=== PATIENT | female | born 1950 | race African-American/Black ===

== ENCOUNTER → 2017-04-25 | Outpatient (CLI) | payer MEDICARE, OTHER ==
[2014-08-04 16:30] VITALS: BP 185/110
--- NOTE | 2017-04-25 08:58 | RAD ---
DATE: 04/25/2017 EXAM: DIGITAL SCREEN BILAT W/CAD HISTORY: Routine screening COMPARISON: Previous study from 2016 and 2015 This study was interpreted with the benefit of Computerized Aided Detection (CAD). FINDINGS: Breast Density: SCATTERED The breast parenchyma shows scattered fibroglandular densities. Breast parenchyma level B. The skin and nipples are within normal limits. No suspicious calcifications, spiculated masses or areas of architectural distortion. IMPRESSION: No mammographic evidence of malignancy. Stable mammogram. BI-RADS CATEGORY: 2 BENIGN FINDING(S) RECOMMENDED FOLLOW-UP: 12M 12 MONTH FOLLOW-UP PQRS compliance statement: Patient information was entered into a reminder system with a target due date 04/25/2018 for the next mammogram. Mammography is a sensitive method for finding small breast cancers, but it does not detect them all and is not a substitute for careful clinical examination. A negative mammogram does not negate a clinically suspicious finding and should not result in delay in biopsying a clinically suspicious abnormality. "Our facility is accredited by the [employer] Mammography [employer]."
== END | disposition home or self-care (01) ==
LOC: MAMMO 08:15
PROVIDERS: ATTEND Family Medicine
DX: Z12.31 Encounter for screening mammogram for malignant neoplasm of breast (principal)
CPT/HCPCS: G0202; 77067

== ENCOUNTER → 2018-03-06 | Outpatient (CLI) | payer MEDICARE, OTHER ==
[2014-08-04 16:30] VITALS: BP 185/110
--- NOTE | 2018-03-07 08:22 | RAD ---
DATE: 03/06/2018 EXAM: MAMMO CHERYL SCREENING BILATERAL HISTORY: Routine screening COMPARISON: 04/25/2017 This study was interpreted with the benefit of Computerized Aided Detection (CAD). Breast Density: SCATTERED The breast parenchyma shows scattered fibroglandular densities. Breast parenchyma level B. FINDINGS: 2-D and 3-D tomosynthesis imaging was performed in CC and MLO projections. No new or enlarging breast densities are seen. Benign-appearing lymph nodes are present in the axillary regions. No suspicious microcalcifications are evident. IMPRESSION: Stable mammograms without evidence of malignancy. BI-RADS CATEGORY: 2 BENIGN FINDING(S) RECOMMENDED FOLLOW-UP: 12M 12 MONTH FOLLOW-UP PQRS compliance statement: Patient information was entered into a reminder system with a target due date for the next mammogram. Mammography is a sensitive method for finding small breast cancers, but it does not detect them all and is not a substitute for careful clinical examination. A negative mammogram does not negate a clinically suspicious finding and should not result in delay in biopsying a clinically suspicious abnormality. "Our facility is accredited by the [employer] Mammography [employer]."
== END | disposition home or self-care (01) ==
LOC: MAMMO 09:19
PROVIDERS: ATTEND Family Medicine
DX: Z12.31 Encounter for screening mammogram for malignant neoplasm of breast (principal)
CPT/HCPCS: 77063; 77067

== ENCOUNTER → 2018-11-25 | Outpatient (CLI) | payer MEDICARE, OTHER ==
[2014-08-04 16:30] VITALS: BP 185/110
--- NOTE | 2018-11-25 16:53 | RAD ---
DUPLEX SONOGRAPHY OF THE PERIPHERAL ARTERIAL SYSTEM OF BOTH LOWER EXTREMITIES Clinical indications: Claudication. Findings: Duplex sonography of the peripheral arterial system of both lower extremities including romeo scale and color flow and spectral waveform analysis was performed. Biphasic waveforms are seen. No occlusive disease is seen. No significant plaque formation or stenosis is identified. The measurements were performed using the NASCET criteria. Peak systolic flow velocities are as follows: Right leg: common femoral artery- 145 cm/sec, profunda femoral artery -85 cm/sec, proximal superficial femoral artery -136 cm/sec, mid superficial femoral artery -105 cm/sec, distal superficial femoral artery- 93 cm/sec, popliteal artery -70 cm/sec, posterior tibial artery- 72 cm/sec, peroneal artery- 82 cm/sec, anterior tibial artery- 48 cm/sec, dorsalis pedis artery -92 cm/sec. Left leg: common femoral artery- 153 cm/sec, profunda femoral artery -103 cm/sec, proximal superficial femoral artery- 141cm/sec, mid superficial femoral artery- 84 cm/sec, distal superficial femoral artery- 76 cm/sec, popliteal artery -75 cm/sec, posterior tibial artery- 90 cm/sec, peroneal artery -48 cm/sec, anterior tibial artery -59 cm/sec, dorsalis pedis artery- 75 cm/sec. IMPRESSION: No significant peripheral arterial vascular disease is seen by duplex sonographic evaluation. ANKLE BRACHIAL INDEX STUDY: Clinical indications: Same. Ankle/brachial indices were performed on both sides. Right side: Arm: The systolic blood pressure is 115 mmHg Ankle: The systolic blood pressure is 146 mmHg Therefore, the ankle brachial index on the right side is 1.2 using the higher left arm pressure. Left side: Arm: The systolic blood pressure is 121 mmHg Ankle: The systolic blood pressure is 144 mmHg Therefore, the ankle brachial index on the left side is 1.2. Impression: Normal bilateral ABUNDIO. Electronically signed by: Randal Mulligan MD (11/25/2018 4:50 PM) [place] [id number]
== END | disposition home or self-care (01) ==
LOC: US 15:31
PROVIDERS: ATTEND Family Medicine
DX: I73.9 Peripheral vascular disease, unspecified (principal)
CPT/HCPCS: 93922; 93925

== ENCOUNTER → 2019-03-09 | Outpatient (CLI) | payer MEDICARE, OTHER ==
[2014-08-04 16:30] VITALS: BP 185/110
--- NOTE | 2019-03-10 16:16 | RAD ---
DATE: 03/09/2019 EXAM: MAMMO CHERYL SCREENING BILATERAL HISTORY: Routine screening COMPARISON: 03/29/2017 and 03/06/2018 mammographic exams This study was interpreted with the benefit of Computerized Aided Detection (CAD). Breast Density: HETERO The breast parenchyma is heterogenously dense, which could reduce sensitivity of mammography. Breast parenchyma level C. FINDINGS: Left upper outer breast small focal asymmetry is present 3.5 cm from the nipple and is not seen on prior exams. No suspicious calcifications, masses, or distortion. IMPRESSION: New focal asymmetry involving the left upper-outer breast of indeterminate significance. BI-RADS CATEGORY: 0 INCOMPLETE: NEEDS ADDITIONAL IMAGING EVALUATION AND/OR PRIOR MAMMOGRAMS FOR COMPARISON. RECOMMENDED FOLLOW-UP: ADD ADDITIONAL IMAGING. Spot compression imaging of the anterior left upper-outer breast is recommended in the MLO and CC projections. Ultrasound may be needed. PQRS compliance statement: Patient information was entered into a reminder system with a target due date for the next mammogram. Mammography is a sensitive method for finding small breast cancers, but it does not detect them all and is not a substitute for careful clinical examination. A negative mammogram does not negate a clinically suspicious finding and should not result in delay in biopsying a clinically suspicious abnormality. "Our facility is accredited by the [employer] Mammography Program."
== END | disposition home or self-care (01) ==
LOC: MAMMO 10:23
PROVIDERS: ATTEND Family Medicine
DX: Z12.31 Encounter for screening mammogram for malignant neoplasm of breast (principal); N64.89 Other specified disorders of breast
CPT/HCPCS: 77063; 77067

== ENCOUNTER → 2019-03-17 | Outpatient (CLI) | payer MEDICARE, OTHER ==
[2014-08-04 16:30] VITALS: BP 185/110
--- NOTE | 2019-03-17 18:34 | RAD ---
DATE: 03/17/2019 EXAM: DIGITAL DIAGNOSTIC LT HISTORY: Abnormal mammogram COMPARISON: 03/06/2018 and 03/09/2019 screen mammographic exams This study was interpreted with the benefit of Computerized Aided Detection (CAD). Breast Density: SCATTERED The breast parenchyma shows scattered fibroglandular densities. Breast parenchyma level B. FINDINGS: Upon spot compression imaging of the outer left CC projection and the left upper breast in the MLO projection, there is no persistent suspicious asymmetry or mass. IMPRESSION: Stable BI-RADS CATEGORY: 1 NEGATIVE RECOMMENDED FOLLOW-UP: 12M 12 MONTH FOLLOW-UP PQRS compliance statement: Patient information was entered into a reminder system with a target due date for the next mammogram. Mammography is a sensitive method for finding small breast cancers, but it does not detect them all and is not a substitute for careful clinical examination. A negative mammogram does not negate a clinically suspicious finding and should not result in delay in biopsying a clinically suspicious abnormality. "Our facility is accredited by the [employer] Mammography Program."
== END | disposition home or self-care (01) ==
LOC: MAMMO 12:57
PROVIDERS: ATTEND Family Medicine
DX: R92.8 Other abnormal and inconclusive findings on diagnostic imaging of breast (principal)
CPT/HCPCS: 77065

== ENCOUNTER 2019-11-01 08:13 | Emergency (ER) | payer MEDICARE, OTHER ==
[~2019-11-01] VITALS: Ht 160 cm; Wt 84.0 kg
--- NOTE | 2019-11-01 08:39 | PHYS DOC ---
Past Medical History Past Medical History: GERD, Hypertension Past Surgical History: Appendectomy, Cholecystectomy, Hysterectomy, Other Additional Past Surgical Histo: UMBILICAL HERNIA REPAIR Smoking Status: Never Smoker Alcohol Use: None Drug Use: None General Adult EDM: Chief Complaint: ABDOMINAL PAIN HPI: HPI: Patient is a 69 year old female who presented to ER today for evaluation of mid abdominal pain started last night. Patient could not sleep last night due to pain, patient says she never experienced this type pain in the past, patient denies any nausea vomiting. Patient has multiple abdominal operations in the past include hysterectomy, cholecystectomy and appendectomy. Patient has chronic low back pain. Patient said it is not her back problem. Patient denies any fever. Patient denies chest pain, no trouble breathing. Patient denies any bowel or bladder incontinence. Review of Systems: Review of Systems: Constitutional: Denies fever or chills. [] Eyes: Denies change in visual acuity. [] HENT: Denies nasal congestion or sore throat. [] Respiratory: Denies cough or shortness of breath. [] Cardiovascular: Denies chest pain or edema. [] GI: Positive for abdominal pain, denies nausea, vomiting, bloody stools or diarrhea. [] : Denies dysuria. [] Musculoskeletal: Denies back pain or joint pain. [] Integument: Denies rash. [] Neurologic: Denies headache, focal weakness or sensory changes. [] Endocrine: Denies polyuria or polydipsia. [] Lymphatic: Denies swollen glands. [] Psychiatric: Denies depression or anxiety. [] Heart Score: Risk Factors: Risk Factors: DM, Current or recent (<one month) smoker, HTN, HLP, family history of CAD, obesity. Risk Scores: Score 0 - 3: 2.5% MACE over next 6 weeks - Discharge Home Score 4 - 6: 20.3% MACE over next 6 weeks - Admit for Clinical Observation Score 7 - 10: 72.7% MACE over next 6 weeks - Early Invasive Strategies Allergies: Allergies: Allergies Coded Allergies Type Severity Reaction Last Updated Verified No Known Drug Allergies 11/01/19 No Physical Exam: PE: Constitutional: Well developed, well nourished, in mild acute distress due to pain, non-toxic appearance. [] HENT: Normocephalic, atraumatic, bilateral external ears normal, oropharynx moist, no oral exudates, nose normal. [] Eyes: PERRLA, EOMI, conjunctiva normal, no discharge. [] Neck: Normal range of motion, no tenderness, supple, no stridor. [] Cardiovascular:Heart rate regular rhythm, no murmur [] Lungs & Thorax: Bilateral breath sounds clear to auscultation [] Abdomen: Bowel sounds normal, soft, diffuse abdominal tenderness to palpation, no distention, no masses, no pulsatile masses. [] Skin: Warm, dry, no erythema, no rash. [] Back: No tenderness, no CVA tenderness. [] Extremities: No tenderness, no cyanosis, no clubbing, ROM intact, no edema. [] Neurologic: Alert and oriented X 3, normal motor function, normal sensory function, no focal deficits noted. [] Psychologic: Affect normal, judgement normal, mood normal. [] Current Patient Data: Vital Signs: Vital Signs Date Time Temp Pulse Resp B/P (MAP) Pulse Ox O2 Delivery O2 Flow Rate FiO2 11/01/19 08:18 98.6 102 24 215/91 (132) 98 Room Air 98.6 EKG: EKG: [] Radiology/Procedures: Radiology/Procedures: [][facility] [id number] [place], [place] [id number] IMAGING REPORT Signed PATIENT: MUNIR RIGGS ACCOUNT: [id number] : 1950 LOCATION: ER AGE: 69 SEX: F EXAM STATUS: PRE ER ORD. PHYSICIAN: YUMIKO OCAMPO DO REASON: diffuse abdominal pain since last night PROCEDURE: CT ABD PELV W/ IV CONTRST ONLY PQRS Compliance Statement: One or more of the following individualized dose reduction techniques were utilized for this examination: 1. Automated exposure control 2. Adjustment of the mA and/or kV according to patient size 3. Use of iterative reconstruction technique CT abdomen/pelvis with contrast 11/01/2019 9:15 AM INDICATION: Diffuse abdominal pain since last night COMPARISON: None available TECHNIQUE: Multiple axial CT images of the abdomen and pelvis were obtained after the intravenous administration of 75 mL Omni 300. Coronal and sagittal reformats are provided. FINDINGS: Lung bases are clear. Heart size is within normal limits. Circumscribed hypoattenuating lesion in the lateral segment left hepatic lobe measures 7.5 mm suggestive of a simple cyst just. No suspicious hepatic mass is identified. Portal venous system is widely patent. Gallbladder surgically absent. Mild intrahepatic and extra hepatic biliary ductal dilatation may be secondary to reservoir effect status post cholecystectomy. Spleen and bilateral adrenal glands are normal in appearance. There is mild prominence of main pancreatic duct measuring up to 2 mm which may be secondary to mild parenchymal atrophy. No suspicious pancreatic mass is visualized. Abdominal aorta is ectatic measuring up to 2.0 x 1.9 cm dense calcified atheromatous plaque. No pathologically enlarged lymph nodes are identified. There is no free fluid or free intraperitoneal air. Surgical clips are identified along the pelvic sidewall bilaterally. There is moderate colonic diverticulosis without adjacent inflammatory changes. Appendix is normal in appearance. Mildly prominent small bowel loops are identified in the left upper quadrant of the abdomen with adjacent inflammatory changes and mucosal hyperenhancement. Bowel loops measure up to 2.8 cm. Findings are most suggestive of an enteritis predominantly involving the jejunum and relatively sparing the ileum. No bowel obstruction. Hypoattenuating renal cortical lesions have imaging appearance suggestive of simple cysts. No suspicious renal mass is identified. No hydronephrosis. Urinary bladder is within normal limits given degree of distention. Uterus appears surgically absent. No suspicious pelvic mass is identified. Peritoneum appears normal. No suspicious osseous abnormality is identified. IMPRESSION: 1. Borderline prominent small bowel loops with adjacent inflammatory changes are most suggestive of an enteritis of infectious/inflammatory etiology. No definite bowel obstruction is visualized. Mild fecal stasis is identified within the distal jejunal bowel loops. Ileum appears prominent decompressed without significant adjacent inflammation. Recommend short-term follow-up radiographs to exclude developing bowel obstruction or ileus. Electronically signed by: Veto Anderson MD (11/01/2019 10:06 AM) [facility] [place] DICTATED and SIGNED BY: VETO ANDERSON MD DATE: 11/01/19 1006 Course & Med Decision Making: Course & Med Decision Making Pertinent Labs and Imaging studies reviewed. (See chart for details) Patient is a 69-year-old female who was evaluated in the ER due to abdominal pain, patient was given medication in the ER, she feels much better, her blood pressure improved, patient is okay to go home. CT scan did not show an obstruction. Patient had no nausea vomiting in the ER. Dragon Disclaimer: Dragon Disclaimer: This electronic medical record was generated, in whole or in part, using a voice recognition dictation system. Departure Departure Impression: Primary Impression: Abdominal pain Disposition: HOME, SELF-CARE Condition: IMPROVED Referrals: KEIRA BAKER MD (PCP) please follow up with your doctor in 2 days for reevaluation Patient Instructions: Abdominal Pain Additional Instructions: Thank you for visiting our Emergency Department. We appreciate you trusting us with your care. If any additional problems come up don't hesitate to return to visit us. Please follow up with your primary care provider so they can plan additional care if needed and know about the problem that you had. If symptoms worsen come back to the Emergency Department. Any concerning symptoms that start such as chest pain, shortness of air, weakness or numbness on one side of the body, running high fevers or any other concerning symptoms return to the ER. Justicifation of Admission Dx: Justifications for Admission: Justification of Admission Dx: N/A YUMIKO OCAMPO DO Nov 01, 2019 08:39
[2019-11-01 08:41] LABS: BASO # 0.1 x10^3/uL (0.0-0.2); BASO % 1 % (0-3); EOS # 0.1 x10^3/uL (0.0-0.7); EOS % 1 % (0-3); HEMATOCRIT 40.4 % (36.0-47.0); HEMOGLOBIN 13.9 g/dL (12.0-15.5); LYMPH # 2.5 x10^3/uL (1.0-4.8); LYMPH % 27 % (24-48); MEAN CORPUSCULAR HEMOGLOBIN 29 pg (25-35); MEAN CORPUSCULAR HGB CONC 34 g/dL (31-37); MEAN CORPUSCULAR VOLUME 85 fL (79-100); MONO # 0.7 x10^3/uL (0.0-1.1); MONO % 8 % (0-9); NEUT # 5.8 x10^3/uL (1.8-7.7); NEUT % 63 % (31-73); PLATELET COUNT 367 x10^3/uL (140-400); RED BLOOD COUNT 4.77 x10^6/uL (3.50-5.40); RED CELL DISTRIBUTION WIDTH 13.1 % (11.5-14.5); WHITE BLOOD COUNT 9.2 x10^3/uL (4.0-11.0)
[2019-11-01] MEDS ORDERED: ONDANSETRON PF 4 MG/2 ML VIAL. IVP ONE (08:45)
[2019-11-01] MEDS ORDERED: MORPHINE SULFATE 4 MG/ML VIAL. IV ONE (08:45)
[2019-11-01 08:54] LABS: PROTHROMBIN TIME PATIENT 12.9 SEC (11.7-14.0)
[2019-11-01 09:04] LABS: ALBUMIN 3.6 g/dL (3.4-5.0); ALBUMIN/GLOBULIN RATIO 0.8 (1.0-1.7); CALCIUM 9.4 mg/dL (8.5-10.1); GFR 66.3; POTASSIUM 3.3 mmol/L (3.5-5.1); TOTAL BILIRUBIN 0.3 mg/dL (0.2-1.0); TOTAL PROTEIN 8.2 g/dL (6.4-8.2)
[2019-11-01] MEDS ORDERED: IOHEXOL 300 MG/ML 100ML VIAL. IV ONE (09:30)
--- NOTE | 2019-11-01 10:10 | RAD ---
PQRS Compliance Statement: One or more of the following individualized dose reduction techniques were utilized for this examination: 1. Automated exposure control 2. Adjustment of the mA and/or kV according to patient size 3. Use of iterative reconstruction technique CT abdomen/pelvis with contrast 11/01/2019 9:15 AM INDICATION: Diffuse abdominal pain since last night COMPARISON: None available TECHNIQUE: Multiple axial CT images of the abdomen and pelvis were obtained after the intravenous administration of 75 mL Omni 300. Coronal and sagittal reformats are provided. FINDINGS: Lung bases are clear. Heart size is within normal limits. Circumscribed hypoattenuating lesion in the lateral segment left hepatic lobe measures 7.5 mm suggestive of a simple cyst just. No suspicious hepatic mass is identified. Portal venous system is widely patent. Gallbladder surgically absent. Mild intrahepatic and extra hepatic biliary ductal dilatation may be secondary to reservoir effect status post cholecystectomy. Spleen and bilateral adrenal glands are normal in appearance. There is mild prominence of main pancreatic duct measuring up to 2 mm which may be secondary to mild parenchymal atrophy. No suspicious pancreatic mass is visualized. Abdominal aorta is ectatic measuring up to 2.0 x 1.9 cm dense calcified atheromatous plaque. No pathologically enlarged lymph nodes are identified. There is no free fluid or free intraperitoneal air. Surgical clips are identified along the pelvic sidewall bilaterally. There is moderate colonic diverticulosis without adjacent inflammatory changes. Appendix is normal in appearance. Mildly prominent small bowel loops are identified in the left upper quadrant of the abdomen with adjacent inflammatory changes and mucosal hyperenhancement. Bowel loops measure up to 2.8 cm. Findings are most suggestive of an enteritis predominantly involving the jejunum and relatively sparing the ileum. No bowel obstruction. Hypoattenuating renal cortical lesions have imaging appearance suggestive of simple cysts. No suspicious renal mass is identified. No hydronephrosis. Urinary bladder is within normal limits given degree of distention. Uterus appears surgically absent. No suspicious pelvic mass is identified. Peritoneum appears normal. No suspicious osseous abnormality is identified. IMPRESSION: 1. Borderline prominent small bowel loops with adjacent inflammatory changes are most suggestive of an enteritis of infectious/inflammatory etiology. No definite bowel obstruction is visualized. Mild fecal stasis is identified within the distal jejunal bowel loops. Ileum appears prominent decompressed without significant adjacent inflammation. Recommend short-term follow-up radiographs to exclude developing bowel obstruction or ileus. Electronically signed by: Emmie Whitt MD (11/01/2019 10:06 AM) [facility]
[2019-11-01 11:10] LABS: BILIRUBIN,URINE NEGATIVE (NEG); CLARITY,URINE CLEAR; COLOR,URINE YELLOW; NITRITE,URINE NEGATIVE (NEG); PROTEIN,URINE 30 mg/dL (NEG-TRACE)
[2019-11-01 11:22] LABS: BACTERIA,URINE 0 /HPF (0-FEW); RBC,URINE 0 /HPF (0-2); SQUAMOUS EPITHELIAL CELL,UR MANY /LPF; WBC,URINE OCC /HPF (0-4)
[2019-11-01 12:00] VITALS: BP 101/66
== END 2019-11-01 12:27 | disposition home or self-care (01) ==
LOC: ER 08:13
DX: R10.84 Generalized abdominal pain (principal); G89.29 Other chronic pain; M54.5 Low back pain; I10 Essential (primary) hypertension; K21.9 Gastro-esophageal reflux disease without esophagitis; Z90.89 Acquired absence of other organs; Z90.710 Acquired absence of both cervix and uterus; Z90.49 Acquired absence of other specified parts of digestive tract
CPT/HCPCS: 36415; 74177; 80053; 81001; 83690; 85025; 85610; 85730; 87040; 87086; 96374; 96375; 99285; J2270; J2405; Q9967

== ENCOUNTER → 2020-03-16 | Outpatient (CLI) | payer MEDICARE, OTHER ==
--- NOTE | 2020-03-16 11:40 | RAD ---
DATE: 03/16/2020 EXAM: MAMMO CHERYL SCREENING BILATERAL HISTORY: Screening COMPARISON: 04/23/2015, 04/24/2016, 04/06/2018, 03/09/2019 This study was interpreted with the benefit of Computerized Aided Detection (CAD). Breast Density: SCATTERED The breast parenchyma shows scattered fibroglandular densities. Breast parenchyma level B. FINDINGS: No mass, suspicious calcification, or architectural distortion in either breast. IMPRESSION: No evidence of malignancy. BI-RADS CATEGORY: 1 NEGATIVE RECOMMENDED FOLLOW-UP: 12M 12 MONTH FOLLOW-UP PQRS compliance statement: Patient information was entered into a reminder system with a target due date 03/17/2021 for the next mammogram. Mammography is a sensitive method for finding small breast cancers, but it does not detect them all and is not a substitute for careful clinical examination. A negative mammogram does not negate a clinically suspicious finding and should not result in delay in biopsying a clinically suspicious abnormality. "Our facility is accredited by the [employer] Mammography Program."
== END ==
LOC: MAMMO 10:21
PROVIDERS: ATTEND Family Medicine
DX: Z12.31 Encounter for screening mammogram for malignant neoplasm of breast (principal)
CPT/HCPCS: 77063; 77067

== ENCOUNTER → 2021-03-20 | Outpatient (CLI) | payer MEDICARE, OTHER ==
--- NOTE | 2021-03-20 16:58 | RAD ---
Bilateral digital screening mammogram to include digital breast tomosynthesis (3-D mammography) 03/20 CLINICAL HISTORY: Screening study. Digital MLO and CC mammograms of both breasts were obtained. Additionally digital breast tomosynthesi s images (3-D mammography) of both breasts in the CC and MLO projections were obtained. Comparison studies are dated 03/16/2020, 03/17/2019, 03/09/2019 and 03/06/2018. The breast parenchyma is composed of scattered fibroglandular densities which can obscure a lesion on mammography (breast density B). No spiculated mass is seen. No malignant appearing calcification or area of architectural distortion is noted. Digital breast tomosynthesis images demonstrate no spiculated mass. No malignant appearing calcificat ion is seen. Impression: BI-RADS Category 1: Negative. There is no mammographic evidence of malignancy. Routine y early screening mammography is recommended for follow-up. This examination was reviewed with the aid of computer-aided detection. A mammogram does not have 100% sensitivity and therefore a negative imaging study should not delay fu rther work up of a suspicious abnormality. Patient information is entered into the reminder system with a target due date for the next screening mammogram of 03/20/2022. "Our facility is accredited by the [employer] Mammography [employer]." Electronically signed by: Nimesh Sharma MD (03/20/2021 4:55 PM) [id number]
== END ==
LOC: MAMMO 08:47
PROVIDERS: ATTEND Family Medicine
DX: Z12.31 Encounter for screening mammogram for malignant neoplasm of breast (principal)
CPT/HCPCS: 77063; 77067

== ENCOUNTER 2021-07-22 11:06 | Emergency (ER) | payer MEDICARE, OTHER ==
[~2021-07-22] VITALS: Ht 162.6 cm; Wt 84.0 kg
[2021-07-22 12:04] LABS: BILIRUBIN,URINE NEGATIVE (NEG); CLARITY,URINE CLEAR; COLOR,URINE YELLOW; NITRITE,URINE NEGATIVE (NEG); PH,URINE 6.5 (<5.0-8.0); PROTEIN,URINE TRACE mg/dL (NEG-TRACE); UROBILINOGEN,URINE 0.2 mg/dL (0.2 mg/dL)
[2021-07-22 12:05] LABS: BACTERIA,URINE MODERATE /HPF (0-FEW); RBC,URINE 0 /HPF (0-2)
--- NOTE | 2021-07-22 12:14 | PHYS DOC ---
Past Medical History Past Medical History: GERD, Hypertension Past Surgical History: Appendectomy, Cholecystectomy, Hysterectomy, Other Additional Past Surgical Histo: UMBILICAL HERNIA REPAIR Smoking Status: Former Smoker Alcohol Use: Sober Drug Use: None General Adult EDM: Chief Complaint: BACK PAIN OR INJURY HPI: HPI: Patient is a 71-year-old female that presents today with right back right hip pain. Patient states that her pain started on with no known injury or trauma, she states that she has some pain that shoots to the top of her thigh at times on the right side but it goes away. She does have a history of left-sided sciatica pain for which she is treated by her primary care physician, she states this pain is similar but now it is on the right and that has her concerned. Patient has tried her home medications which Voltaren gel, she also takes [id number] Aleve, as well as Aspercreme. Patient does have a past medical history of hypertension and is managed by Dr. Montoya for this. Patient denies any difficulty with voiding or defecating, she states she has not had a loss of bowel or bladder control. Review of Systems: Review of Systems: Constitutional: Denies fever or chills. [] Eyes: Denies change in visual acuity. [] HENT: Denies nasal congestion or sore throat. [] Respiratory: Denies cough or shortness of breath. [] Cardiovascular: Denies chest pain or edema. [] GI: Denies abdominal pain, nausea, vomiting, bloody stools or diarrhea. [] : Denies dysuria. [] Musculoskeletal: Right-sided back hip pain denies joint pain. [] Integument: Denies rash. [] Neurologic: Denies headache, focal weakness or sensory changes. [] Endocrine: Denies polyuria or polydipsia. [] Lymphatic: Denies swollen glands. [] Psychiatric: Denies depression or anxiety. [] Heart Score: C/O Chest Pain: No Risk Factors: Risk Factors: DM, Current or recent (<one month) smoker, HTN, HLP, family history of CAD, obesity. Risk Scores: Score 0 - 3: 2.5% MACE over next 6 weeks - Discharge Home Score 4 - 6: 20.3% MACE over next 6 weeks - Admit for Clinical Observation Score 7 - 10: 72.7% MACE over next 6 weeks - Early Invasive Strategies Current Medications: Current Medications Medications (Trade) Dose Ordered Sig/Jacoby Start Time Stop Time Status Last Admin Dose Admin Ketorolac Tromethamine (Toradol 30mg Vial) 30 mg 1X ONCE 07/22/21 12:15 07/22/21 12:16 Allergies: Allergies: Allergies Coded Allergies Type Severity Reaction Last Updated Verified No Known Drug Allergies 07/22/21 No Physical Exam: PE: Constitutional: Well developed, well nourished, no acute distress, non-toxic appearance. [] HENT: Normocephalic, atraumatic, bilateral external ears normal, oropharynx moist, no oral exudates, nose normal. [] Eyes: PERRLA, EOMI, conjunctiva normal, no discharge. [] Neck: Normal range of motion, no tenderness, supple, no stridor. [] Cardiovascular:Heart rate regular rhythm, no murmur [] Lungs & Thorax: Bilateral breath sounds clear to auscultation [] Abdomen: Bowel sounds normal, soft, no tenderness, no masses, no pulsatile masses. [] Skin: Warm, dry, no erythema, no rash. [] Back: Tenderness noted with palpation along the right SI joint and along the piriformis muscle in the right hip, patient's sensory is equal on both legs, cap refill is less than 2 seconds bilaterally and pedal pulses are 2+. Extremities: No tenderness, no cyanosis, no clubbing, ROM intact, no edema. [] Neurologic: Alert and oriented X 3, normal motor function, normal sensory function, no focal deficits noted. [] Psychologic: Affect normal, judgement normal, mood normal. [] Current Patient Data: Labs: Laboratory Tests Test 07/22/21 11:40 Urine Collection Type Unknown Urine Color Yellow Urine Clarity Clear Urine pH 6.5 (<5.0-8.0) Urine Specific [place] >=1.030 (1.000-1.030) Urine Protein Trace mg/dL (NEG-TRACE) Urine Glucose (UA) Negative mg/dL (NEG) Urine Ketones (Stick) Negative mg/dL (NEG) Urine Blood Negative (NEG) Urine Nitrite Negative (NEG) Urine Bilirubin Negative (NEG) Urine Urobilinogen Dipstick 0.2 mg/dL (0.2 mg/dL) Urine Leukocyte Esterase Trace (NEG) Urine RBC 0 /HPF (0-2) Urine WBC 5-10 /HPF (0-4) Urine Squamous Epithelial Cells Mod /LPF Urine Bacteria Moderate /HPF (0-FEW) Urine Mucus Slight /LPF Vital Signs: Vital Signs Date Time Temp Pulse Resp B/P (MAP) Pulse Ox O2 Delivery O2 Flow Rate FiO2 07/22/21 11:20 98.1 89 16 146/83 (104) 97 Room Air 98.1 EKG: EKG: [] Radiology/Procedures: Radiology/Procedures: [] Course & Med Decision Making: Course & Med Decision Making Pertinent Labs and Imaging studies reviewed. (See chart for details) Patient was ambulatory in the room and did drive herself to the emergency department, when I went in to assess her, she had no foot drop and no unsteady gait, I did review her MRI from 2014 which showed some degenerative joint disease in L4-L5, did inform her that since she has a past medical history of sciatica that I will treat her pain here in the emergency department and have her follow-up with her primary care physician on Saturday for further management of her back pain. I did inform her she may need a repeat MRI since it has been 7 years since her last MRI. We did perform a UA here in the emergency department which showed the patient had a urinary tract infection we will treat that with cephalexin. Ritu Disclaimer: Ritu Disclaimer: This electronic medical record was generated, in whole or in part, using a voice recognition dictation system. Departure Departure Impression: Primary Impression: Back pain at L4-L5 level Disposition: HOME / SELF CARE / HOMELESS Condition: STABLE Referrals: KEIRA BAKER MD (PCP) Patient Instructions: Back Pain, Adult Additional Instructions: Tramadol take 1 tablet every 6 hours as needed for severe pain use with caution may cause drowsiness and constipation [id number] Aleve as labeled directed Cyclobenzaprine take 1 tablet every 8 hours as needed for muscle spasms, use with caution may cause drowsiness or dizziness Ice to the affected area 20 minutes on 3-4 times daily Follow-up with your primary care physician on Saturday for further management of your back pain Return to the emergency department if you should experience any loss of bowel or bladder control or you are are unable to void or defecate. Scripts Tramadol Hcl (TRAMADOL HCL) 50 Mg Tablet 50 MG PO PRN Q6HRS PRN for PAIN, #14 TAB Prov: SANDY GUERRERO DIRECTOR INPATIENT HEADACHE PROGRAM 07/22/21 Cyclobenzaprine Hcl (CYCLOBENZAPRINE HCL) 10 Mg Tablet 10 MG PO TID PRN PRN for MUSCLE PAIN, #14 TAB Prov: SANDY GUERRERO DIRECTOR INPATIENT HEADACHE PROGRAM 07/22/21 SANDY GUERRERO APRN Jul 22, 2021 12:14
[2021-07-22] MEDS ORDERED: KETOROLAC 30 MG/ML VIAL. IM ONE (12:15)
[2021-07-22] MEDS ORDERED: CYCL10TA19 PO (12:17)
[2021-07-22] MEDS ORDERED: TRAM50TA PO (12:17)
[2021-07-22 12:26] VITALS: BP 155/78
== END 2021-07-22 12:25 | disposition home or self-care (01) ==
LOC: ER 11:06
DX: M54.50 Low back pain, unspecified (principal); K21.9 Gastro-esophageal reflux disease without esophagitis; I10 Essential (primary) hypertension; Z87.891 Personal history of nicotine dependence; Z90.89 Acquired absence of other organs; Z90.49 Acquired absence of other specified parts of digestive tract; Z90.710 Acquired absence of both cervix and uterus; Z98.890 Other specified postprocedural states
CPT/HCPCS: 81001; 87086; 96372; 99283; J1885